=== PATIENT | female | born 1985 | race American Indian/Alaskan Native ===

== ENCOUNTER 2016-11-10 15:30 | Emergency (ER) | payer MEDICAID ==
[2016-11-10] MEDS ORDERED: TYLENOL ONE (15:54)
[2016-11-10] MEDS ORDERED: TYLENOL PO ONE (15:56)
[2016-11-10 17:40] LABS: Basophils % (Auto) 0.4 % (0.0-1.8); Eosinophils % (Auto) 0.6 % (0.0-4.3); Hematocrit 32.4 % (30.3-42.9); Hemoglobin 10.3 gm/dl (10.1-14.3); Mean Corpuscular HGB Conc 32 % (30-34); Mean Corpuscular Volume 73 fl (79-97); Platelet Count 250 K/mm3 (140-440); Red Blood Count 4.44 M/mm3 (3.65-5.03); Red Cell Distribution Width 16.2 % (13.2-15.2); White Blood Count 11.3 K/mm3 (4.5-11.0)
[2016-11-10 17:41] LABS: Mean Corpuscular Hemoglobin 23 pg (28-32)
[2016-11-10] MEDS ORDERED: CLEOCIN IM ONE (17:42)
[2016-11-10] MEDS ORDERED: TORADOL IM ONE (17:42)
[2016-11-10] MEDS ORDERED: PERCOCET 5/325 PO ONE (17:42)
[2016-11-10 17:44] LABS: Anion Gap 16 mmol/L; BUN/Creatinine Ratio 17.14; Blood Urea Nitrogen 12 mg/dL (7-17); Carbon Dioxide 24 mmol/L (22-30); Chloride 102.4 mmol/L (98-107); Glucose 110 mg/dL (65-100); Potassium 3.5 mmol/L (3.6-5.0); Sodium 139 mmol/L (137-145)
[2016-11-10 17:53] LABS: INR 1.19 (0.87-1.13); Partial Thromboplastin Time 30.9 Sec. (24.2-36.6)
[2016-11-10] MEDS ORDERED: K-DUR PO ONE (18:15)
[2016-11-10 18:19] VITALS: BP 139/88
--- NOTE | 2016-11-10 18:35 | Emergency Department Report ---
Entered by ELBA OROSCO, acting as scribe for FELIBERTO GOMEZ PA. ED Extremity Problem HPI - General Chief complaint: Extremity Injury, Lower Stated complaint: CELLULITUS Time Seen by Provider: 11/10/16 16:51 Source: patient Mode of arrival: Ambulatory Limitations: No Limitations - History of Present Illness Initial comments: This is a 30 y/o male, nontoxic, well nourished in appearance, no acute signs of distress with a PMHx of gestational diabetes, HTN, and morbid obesity presents to the ED c/o gradually worsening cellulitis to left lower leg that began 3 days ago. Rates associated pain an 8/10 in severity, which he describes as sharp in quality. Aggravated with movement and alleviated with immobilization. Reports associated fever, but she denies insect bite, left lower leg injury/trauma fever, chills, chest pain, SOB, DON or dizziness, numbness, tingling. Notes she had cellulitis in her left inner thigh last June , which she was admitted for 1 week. Denies PMHx of DVT and PE. Denies any recent long travels. Took Motrin with no relief. NKDA. CHAPIN Complaint: extremity pain, extremity swelling Onset/Timin -: days(s) Location: left, lower extremity History of Same: Yes (once in June 2015) -: No myalgia, Yes arthralgia, Yes fever, No associated dyspnea, No associated chest pain Radiation: none Severity scale (0 -10): 8 Quality: sharp Consistency: constant Improves with: immobilization, rest Worsens with: weight bearing, walking, palpation Associated Symptoms: denies other symptoms, fever, arthralgias (LT lower leg pain). denies: chest pain, shortness of breath, myalgias, rash - Related Data Previous Rx's Medication Instructions Recorded Last Taken Type Clindamycin [Clindamycin CAP] 300 mg PO Q8H #30 cap 11/10/16 Unknown Rx HYDROcodone/APAP 5-325 [[place] 1 each PO Q6H PRN #15 tablet 11/10/16 Unknown Rx 5-325 mg TAB] Allergies Allergy/AdvReac Type Severity Reaction Status Date / Time latex Allergy Hives Verified 06/30/15 14:09 ED Review of Systems Comment: All other systems reviewed and negative Constitutional: fever. denies: chills, diaphoresis, weakness Eyes: denies: eye pain, eye discharge, vision change ENT: denies: ear pain, throat pain Respiratory: denies: cough, orthopnea, shortness of breath, SOB with exertion, SOB at rest, stridor, wheezing Cardiovascular: denies: chest pain, palpitations, dyspnea on exertion, orthopnea , edema, syncope, paroxysmal nocturnal dyspnea Endocrine: no symptoms reported Gastrointestinal: denies: abdominal pain, nausea, vomiting, diarrhea, constipation Genitourinary: denies: urgency, dysuria, discharge Musculoskeletal: arthralgia (LT lower leg). denies: back pain, joint swelling, myalgia Skin: other (cellulitis on left left lower leg). denies: rash, lesions Neurological: denies: headache, weakness, numbness, paresthesias Psychiatric: denies: anxiety, depression Hematological/Lymphatic: denies: easy bleeding, easy bruising ED Past Medical Hx - Past Medical History Previous Medical History?: Yes Hx Hypertension: Yes Hx Diabetes: Yes (GESTATIONAL) Additional medical history: MORBID OBESITY - Surgical History Past Surgical History?: Yes Additional Surgical History: X 2 - Family History Family history: no significant - Social History Smoking Status: Current Every Day Smoker Substance Use Type: Alcohol - Medications Home Medications: Home Medications Medication Instructions Recorded Confirmed Last Taken Type Clindamycin [Clindamycin CAP] 300 mg PO Q8H #30 cap 11/10/16 Unknown Rx HYDROcodone/APAP 5-325 [[place] 1 each PO Q6H PRN #15 tablet 11/10/16 Unknown Rx 5-325 mg TAB] ED Physical Exam - General Limitations: No Limitations General appearance: alert, in no apparent distress - Head Head exam: Present: atraumatic, normocephalic, normal inspection - Eye Eye exam: Present: normal appearance, PERRL, EOMI Pupils: Present: normal accommodation - ENT ENT exam: Present: normal exam, normal orophraynx, mucous membranes moist, normal external ear exam - Neck Neck exam: Present: normal inspection (supple), full ROM. Absent: tenderness, meningismus, lymphadenopathy - Respiratory Respiratory exam: Present: normal lung sounds bilaterally. Absent: respiratory distress, wheezes, rales, rhonchi, stridor, chest wall tenderness, accessory muscle use, decreased breath sounds, prolonged expiratory - Cardiovascular Cardiovascular Exam: Present: regular rate, normal rhythm, normal heart sounds. Absent: systolic murmur, diastolic murmur, S3, S4 - GI/Abdominal GI/Abdominal exam: Present: soft, normal bowel sounds. Absent: distended, tenderness, guarding, rebound, rigid, hypoactive bowel sounds, organomegaly, mass, bruit, pulsatile mass - Extremities Exam Extremities exam: Present: full ROM, tenderness (left lower extremity), normal capillary refill, calf tenderness (left). Absent: normal inspection, pedal edema, joint swelling - Expanded Lower Extremity Exam Left Hip exam: Present: normal inspection, full ROM, external rotation, internal rotation, pelvic stability. Absent: tenderness, swelling, abrasion, laceration , ecchymosis, deformity, crepidus, dislocation, erythema, shortening Upper Leg exam: Present: normal inspection, full ROM. Absent: tenderness, swelling, abrasion, laceration, ecchymosis, deformity, crepidus, dislocation, erythema Knee exam: Present: full ROM, tenderness, swelling, full knee extension. Absent : normal inspection, abrasion, laceration, ecchymosis, deformity, crepidus, dislocation, erythema, effusion, pain w/ pronation/supination, posterior draw sign, pain/laxity with valgus, pain/laxity with varus Lower Leg exam: Present: full ROM, tenderness, swelling, erythema (erythematous outer lateral left mid lower leg with a small opening in center). Absent: normal inspection, abrasion, laceration, ecchymosis, deformity, crepidus, dislocation, palpable cord, Loyd's sign Ankle exam: Present: full ROM, tenderness, swelling. Absent: normal inspection , abrasion, laceration, ecchymosis, deformity, crepidus, dislocation, erythema, anterior draw sign Foot/Toe exam: Present: full ROM, tenderness, swelling. Absent: normal inspection, abrasion, laceration, ecchymosis, deformity, crepidus, dislocation, erythema, amputation, puncture wound, foreign body, calcaneal tenderness, tenderness at base of 5th metatarsal, nail avulsion, subungual hematoma Neuro vascular tendon exam: Present: no vascular compromise. Absent: pulse deficit, abnormal cap refill, motor deficit, sensory deficit, tendon deficit, extremity cold to touch, pallor, abnormal 2-point discrimination, decreased fine /light touch, foot drop, peroneal nerve deficit, significant pain with passive ROM of distal joint Gait: Positive: observed and limited by pain - Back Exam Back exam: Present: normal inspection, full ROM. Absent: tenderness, CVA tenderness (R), CVA tenderness (L), muscle spasm, paraspinal tenderness, vertebral tenderness - Neurological Exam Neurological exam: Present: alert, oriented X3, abnormal gait (due to left lower extremity pain), reflexes normal - Psychiatric Psychiatric exam: Present: normal affect, normal mood - Skin Skin exam: Present: warm, dry, rash, erythema. Absent: cyanosis, urticaria, vesicles, petechiae, pallor - Expanded Skin Exam Expanded Type of lesion: Present: other (cellulitic). Absent: foreign body, bite/sting Distribution of rash: LLE (mid other lateral leg with erythema, tenderness to palpate, swelling with small opening to Center without any drainage. No induration or fluctuance) Description of rash: Present: tenderness, erythematous, swelling (significant swelling to left leg and mild swelling to left ankle and foot when compared to right lower extremity.). Absent: bullous, petechial, purpuic, urticarial, crusting, discharge, fluctuant, indurated ED Course Vital Signs 11/10/16 15:47 Temperature 100.2 F H Pulse Rate 89 Respiratory 16 Rate Blood Pressure 147/87 O2 Sat by Pulse 100 Oximetry Vital Signs 11/10/16 11/10/16 15:47 18:18 Temperature 100.2 F H 98.8 F Pulse Rate 89 74 Respiratory 16 16 Rate Blood Pressure 147/87 Blood Pressure 139/88 [Left] O2 Sat by Pulse 100 95 Oximetry - Reevaluation(s) Reevaluation #1: 11/10/16 18:11 Patient given clindamycin 600 mg IM, 5/325 mg 2 tablets by mouth and Toradol 60 mg IM in emergency room. Her tetanus vaccine is up-to-date ED Medical Decision Making - Lab Data Result diagrams: 11/10/16 17:11 11/10/16 17:14 Lab Results 11/10/16 11/10/16 11/10/16 Range/Units 17:11 17:13 17:14 WBC 11.3 H (4.5-11.0) K/mm3 RBC 4.44 (3.65-5.03) M/mm3 Hgb 10.3 (10.1-14.3) gm/dl Hct 32.4 (30.3-42.9) % MCV 73 L (79-97) fl MCH 23 L (28-32) pg MCHC 32 (30-34) % RDW 16.2 H (13.2-15.2) % Plt Count 250 (140-440) K/mm3 Lymph % (Auto) 19.2 (13.4-35.0) % Bartholomew % (Auto) 4.9 (0.0-7.3) % Eos % (Auto) 0.6 (0.0-4.3) % Baso % (Auto) 0.4 (0.0-1.8) % Lymph # 2.2 (1.2-5.4) K/mm3 Bartholomew # 0.6 (0.0-0.8) K/mm3 Eos # 0.1 (0.0-0.4) K/mm3 Baso # 0.0 (0.0-0.1) K/mm3 Seg Neutrophils % 74.9 H (40.0-70.0) % Seg Neutrophils # 8.5 H (1.8-7.7) K/mm3 PT 15.7 H (12.2-14.9) Sec. INR 1.19 H (0.87-1.13) APTT 30.9 (24.2-36.6) Sec. Sodium 139 (137-145) mmol/L Potassium 3.5 L (3.6-5.0) mmol/L Chloride 102.4 (98-107) mmol/L Carbon Dioxide 24 (22-30) mmol/L Anion Gap 16 mmol/L BUN 12 (7-17) mg/dL Creatinine 0.7 (0.7-1.2) mg/dL Estimated GFR > 60 ml/min BUN/Creatinine Ratio 17.14 % Glucose 110 H (65-100) mg/dL Calcium 8.0 L (8.4-10.2) mg/dL - Radiology Data Radiology results: report reviewed Ultrasound of left lower extremity Doppler study revealed no deep vein thrombosis or superficial vein thrombosis. - Medical Decision Making ED course: Pt here report that she thinks she has cellulitis of her left leg. She says she had this in the past and was treated with antibiotic. Since that she had in a different area but with similar presentation. Tetanus vaccine is up-to-date. Patient had Doppler ultrasound of left lower extremity which revealed no DVT or SVT. Blood work with CBC mild elevation of white count with slight shift to the left suggesting bacterial infection. PT/INR mildly elevated PTT is stable. Patient is taking Motrin. BMP with potassium is 3.5 and will be repleted with a dose of potassium 40 mEq prior to discharge. Calcium was 8.0 which is low. Patient given clindamycin 600 mg IM, Tylenol 650 mg by mouth in triage area for low grade fever, Toradol 60 mg IM and Percocet 5/ 325 mg 2 tablets by mouth for pain. She was repleted with 40 mEq of potassium of 3.5. Patient given information on ultrasound, diagnosis, treatment plan and lab results. He voiced understanding and she had no adverse reaction from medication. He understands that she has to increase her potassium intake to include bananas at least one per day and her calcium intake to include green leafy vegetables, cheese or milk based products. Vital signs are stable and she is afebrile. Diagnostic/Lab: Preliminary Doppler ultrasound revealed no SVT or DVT. CBC stable except white count mildly elevated and mild bacterial shift to the left with segmental neutrophils percentage and number slightly elevated. MCV MCH mild abnormality. RDW 16.2 which is slightly elevated. PTT is normal PT/INR mildly elevated patient takes Motrin 800 mg. Her BMP was stable except that calcium was 8.0 with it which is low and potassium 3.5 which is low. Assessment/plan 1. Cellulitis left leg-patient given clindamycin 600 mg IM and will be discharged home with clindamycin 2. Swelling left lower extremity-instructed to elevate legs when sitting and lying 3. Arthralgia left lower extremity at the leg and foot 4. Hypokalemia-at 3.5 -repleted with potassium 40 mEq and encouraged to eat at least 2 bananas a day. 5. Hypocalcemia at 8.1-educated on food that is Rich and calcium and to increase intake. 6. Fever in adult-patient encouraged to increase her fluid intake and take Tylenol as needed every 8 hours if she has fever. 7. Morbid obesity with BMI of 60.2-low fat, low sodium diet and exercise encouraged Patient discharged home with her family member in stable condition with prescription for clindamycin, [place] and she has Motrin at home and to follow-up with her primary care physician in 2-3 days. ED Disposition Clinical Impression: Cellulitis of left leg, Arthralgia of left lower leg, Swelling of left lower extremity, Hypocalcemia, Hypokalemia, Morbid obesity with BMI of 60.0-69.9, adult, Fever in adult Disposition: DC-01 TO HOME OR SELFCARE Is pt being admited?: No Does the pt Need Aspirin: No Condition: Stable Instructions: Arthralgia (ED), Leg Edema (ED), Cellulitis (ED), Hypokalemia (ED ), Hypocalcemia (ED), Obesity (ED), Fever in Adults (ED), Weight Management (ED) , Weight Loss Tips for Athletes (ED) Additional Instructions: Eat food low in sodium low in fat and try to avoid fried food. Your potassium and calcium was low today. To eat food that is high in potassium and calcium Take antibiotic as prescribed Please do not drive or operate heavy machinery while taking [place] as this medication causes drowsiness Increase your water intake Try to exercise 3-4 times a day for at least 30 minutes each time to decrease your weight Follow up with a primary care physician in 4 days and if he cannot follow up with primary care physician you can return to the emergency room for recheck on cellulitis Try to keep left lower extremity elevated while you are lying or sitting to reduce swelling. schedule an appointment with your primary care physician for Physical exam. Prescriptions: Clindamycin [Clindamycin CAP] 300 mg PO Q8H #30 cap HYDROcodone/APAP 5-325 [[place] 5-325 mg TAB] 1 each PO Q6H PRN #15 tablet PRN Reason: Pain Referrals: PRIMARY CARE, [Primary Care Provider] - 11/14/16 Forms: Work/School Release Form(ED) This documentation as recorded by the KWESI mccracken JASMINE,accurately reflects the service I personally performed and the decisions made by ,FELIBERTO GOMEZ PA.
== END 2016-11-10 18:46 | disposition home or self-care (01) ==
LOC: ED 15:30
DX: L03.116 Cellulitis of left lower limb (principal); M79.605 Pain in left leg; M79.89 Other specified soft tissue disorders; E87.6 Hypokalemia; E83.51 Hypocalcemia; E66.01 Morbid (severe) obesity due to excess calories; Z68.44 Body mass index [BMI] 60.0-69.9, adult; R50.9 Fever, unspecified
CPT/HCPCS: 36415; 80048; 85025; 85610; 85730; 93971; 96372; 99284; J1885

== ENCOUNTER 2017-03-16 13:05 | Emergency (ER) | payer MEDICAID ==
[2017-03-16 13:18] VITALS: BP 117/61
[2017-03-16] MEDS ORDERED: LIDOCAINE VISCOUS 2% PO ONE (13:24)
[2017-03-16] MEDS ORDERED: TESSALON PERLES PO ONE (13:24)
--- NOTE | 2017-03-16 13:35 | Emergency Department Report ---
- General Chief Complaint: Upper Respiratory Infection Stated Complaint: DON/CONGESTION/SORE THROAT Time Seen by Provider: 03/16/17 13:20 Source: patient Mode of arrival: Ambulatory Limitations: No Limitations - History of Present Illness Initial Comments: This is a 31-year-old female nontoxic, well nourished in appearance, no acute signs of distress presents to the ED with c/o of sore throat, rhinnorhea, frontal sinus pain, productive cough, and nasal congestion x1 week. Patient describes productive cough as yellow mucus production. Patient denies any recent travels, long car rides, or recent hospital stays. Patient denies hemoptysis, chest pain, shortness of breathe, fever, chills, headache, stiff neck, nausea, vomiting, numbness or tingling. Patient denies any blurry vision. Denies thunderclap headache. Patient denies any calf pain or tenderness. Denies any drug allergies. PMH includes diabetes. MD Complaint: cough, sore throat, rhinorrhea, nasal congestion, sinus pain -: week(s) (1) Severity: mild Severity scale (0 -10): 8 Quality: aching Consistency: constant Improves With: nothing Worsens With: nothing Associated Symptoms: headache, rhinorrhea, nasal congestion, sore throat, cough. denies: fever, chills, myalgias, diaphoresis, stiff neck, chest pain, shortness of breath, abdominal pain, nausea, vomiting, diarrhea, dysuria, rash, confusion, right sweats, weight loss, epistaxis, hoarseness, ear pain Treatments Prior to Arrival: none - Related Data Previous Rx's Medication Instructions Recorded Last Taken Type Clindamycin [Clindamycin CAP] 300 mg PO Q8H #30 cap 11/10/16 Unknown Rx HYDROcodone/APAP 5-325 [[place] 1 each PO Q6H PRN #15 tablet 11/10/16 Unknown Rx 5-325 mg TAB] Amoxicillin/K Clav Tab [Augmentin 1 tab PO Q12HR #20 tab 03/16/17 Unknown Rx 875 mg] Benzonatate [Tessalon Perle] 100 mg PO Q8H PRN #30 capsule 03/16/17 Unknown Rx Nystas/Diphen/Xyl Visc/Mylanta 15 ml MM Q6H PRN 30 Days udc 03/16/17 Unknown Rx [Magic Mouthwash] Allergies Allergy/AdvReac Type Severity Reaction Status Date / Time latex Allergy Hives Verified 06/30/15 14:09 ED Review of Systems ROS: Stated complaint: DON/CONGESTION/SORE THROAT Other details as noted in HPI Constitutional: denies: chills, fever Eyes: denies: eye pain, eye discharge, vision change ENT: throat pain. denies: ear pain Respiratory: cough. denies: shortness of breath, wheezing Cardiovascular: denies: chest pain, palpitations Endocrine: no symptoms reported Gastrointestinal: denies: abdominal pain, nausea, diarrhea Genitourinary: denies: urgency, dysuria, discharge Musculoskeletal: denies: back pain, joint swelling, arthralgia Skin: denies: rash, lesions Neurological: denies: headache, weakness, paresthesias Psychiatric: denies: anxiety, depression Hematological/Lymphatic: denies: easy bleeding, easy bruising ED Past Medical Hx - Past Medical History Hx Hypertension: Yes Hx Diabetes: Yes (GESTATIONAL) Additional medical history: MORBID OBESITY - Surgical History Additional Surgical History: X 2 - Social History Smoking Status: Current Every Day Smoker Substance Use Type: None - Medications Home Medications: Home Medications Medication Instructions Recorded Confirmed Last Taken Type Clindamycin [Clindamycin CAP] 300 mg PO Q8H #30 cap 11/10/16 Unknown Rx HYDROcodone/APAP 5-325 [[place] 1 each PO Q6H PRN #15 tablet 11/10/16 Unknown Rx 5-325 mg TAB] Amoxicillin/K Clav Tab [Augmentin 1 tab PO Q12HR #20 tab 03/16/17 Unknown Rx 875 mg] Benzonatate [Tessalon Perle] 100 mg PO Q8H PRN #30 capsule 03/16/17 Unknown Rx Nystas/Diphen/Xyl Visc/Mylanta 15 ml MM Q6H PRN 30 Days udc 03/16/17 Unknown Rx [Magic Mouthwash] ED Physical Exam - General Limitations: No Limitations General appearance: alert, in no apparent distress - Head Head exam: Present: atraumatic, normocephalic, normal inspection - Eye Eye exam: Present: normal appearance, PERRL, EOMI. Absent: scleral icterus, conjunctival injection, nystagmus, periorbital swelling, periorbital tenderness - ENT ENT exam: Present: mucous membranes moist, TM's normal bilaterally, normal external ear exam - Expanded ENT Exam Expanded Ear exam: Present: normal external inspection Mouth exam: Present: normal external inspection, tongue normal. Absent: drooling, trismus, muffled voice, tongue elevation, laceration Teeth exam: Present: normal inspection Throat exam: Positive: tonsillar erythema, tonsillomegaly (2+). Negative: tonsillar exudate, R peritonsillar mass, L peritonsillar mass - Neck Neck exam: Present: normal inspection, full ROM. Absent: tenderness, meningismus, lymphadenopathy, thyromegaly - Respiratory Respiratory exam: Present: normal lung sounds bilaterally. Absent: respiratory distress, wheezes, rales, rhonchi, stridor, chest wall tenderness, accessory muscle use, decreased breath sounds, prolonged expiratory - Cardiovascular Cardiovascular Exam: Present: regular rate, normal rhythm, normal heart sounds. Absent: bradycardia, tachycardia, irregular rhythm, systolic murmur, diastolic murmur, rubs, gallop - GI/Abdominal GI/Abdominal exam: Present: soft, normal bowel sounds. Absent: distended, tenderness, guarding, rebound, rigid, diminished bowel sounds - Rectal Rectal exam: Present: deferred - Extremities Exam Extremities exam: Present: normal inspection, full ROM, normal capillary refill. Absent: tenderness, pedal edema, joint swelling, calf tenderness - Back Exam Back exam: Present: normal inspection, full ROM. Absent: tenderness, CVA tenderness (R), CVA tenderness (L), muscle spasm, paraspinal tenderness, vertebral tenderness, rash noted - Neurological Exam Neurological exam: Present: alert, oriented X3, CN II-XII intact, normal gait, reflexes normal - Psychiatric Psychiatric exam: Present: normal affect, normal mood - Skin Skin exam: Present: warm, dry, intact, normal color. Absent: rash - Other Other exam information: Positive frontal sinus tenderness. ED Course Vital Signs 03/16/17 13:15 Temperature 98.3 F Pulse Rate 65 Respiratory 18 Rate Blood Pressure 117/61 O2 Sat by Pulse 100 Oximetry - Reevaluation(s) Reevaluation #1: 03/16/17 13:38 Patient is speaking in full sentences with no signs of distress noted. ED Medical Decision Making - Medical Decision Making This is a 31-year-old female that presents with sinusitis and upper resp infection. Patient is stable and was examined by me. Chest x-ray has been obtained and dictated by the radiologist with Normal exam. Patient notified of x-ray results were noted by the patient. Influenza and strep swab has been obtained with negative. Patient received lidocaine viscous and Tessalon Perles ikn ed. Patient was instructed Follow-up with a primary care doctor in 3-5 days or if symptoms worsen and continue return to emergency room as soon as possible. At time time of discharge, the patient does not seem toxic or ill in appearance. No acute signs of distress noted. Patient agrees to discharge treatment plan of care. No further questions noted by the patient. Critical care attestation.: If time is entered above; I have spent that time in minutes in the direct care of this critically ill patient, excluding procedure time. ED Disposition Clinical Impression: Sinusitis Qualifiers: Sinusitis location: frontal Chronicity: acute Recurrence: non-recurrent Qualified Code(s): J01.10 - Acute frontal sinusitis, unspecified Upper respiratory infection Qualifiers: URI type: unspecified URI Qualified Code(s): J06.9 - Acute upper respiratory infection, unspecified Disposition: DC-01 TO HOME OR SELFCARE Is pt being admited?: No Does the pt Need Aspirin: No Condition: Stable Instructions: Sinusitis (ED), Amoxicillin/Clavulanate Potassium (By mouth), Upper Respiratory Infection (ED), Benzonatate (By mouth) Additional Instructions: Follow-up with a primary care doctor in 3-5 days or if symptoms worsen and continue return to emergency room as soon as possible. Prescriptions: Amoxicillin/K Clav Tab [Augmentin 875 mg] 1 tab PO Q12HR #20 tab Benzonatate [Tessalon Perle] 100 mg PO Q8H PRN #30 capsule PRN Reason: Cough Nystas/Diphen/Xyl Visc/Mylanta [Magic Mouthwash] 15 ml MM Q6H PRN 30 Days udc PRN Reason: Sore Throat Referrals: BRENDEN ACEVES MD [Staff Physician] - 3-5 Days DWIGHT ARIAS MD [Primary Care Provider] - 3-5 Days [facility] [Outside] - 3-5 Days [facility] [Outside] - 3-5 Days Forms: Work/School Release Form(ED)
--- NOTE | 2017-03-16 14:09 | XRay Report ---
ROUTINE CHEST, TWO VIEWS: Cough. PA and lateral views demonstrate the heart and mediastinal contour to be of normal size and shape. The lungs are clear and fully expanded and the soft tissues and bony structures are normal. IMPRESSION: Normal study.
== END 2017-03-16 14:27 | disposition home or self-care (01) ==
LOC: ED 13:05
DX: J01.10 Acute frontal sinusitis, unspecified (principal); J06.9 Acute upper respiratory infection, unspecified; I10 Essential (primary) hypertension; E66.01 Morbid (severe) obesity due to excess calories; F17.200 Nicotine dependence, unspecified, uncomplicated; Z91.040 Latex allergy status
CPT/HCPCS: 71020; 87116; 87400; 87430

== ENCOUNTER 2017-09-07 15:09 | Emergency (ER) | payer OTHER ==
--- NOTE | 2017-09-07 18:43 | Emergency Department Report ---
ED Female HPI - General Chief complaint: Urogenital-Female Stated complaint: exposed to STD Time Seen by Provider: 09/07/17 18:42 Source: patient Mode of arrival: Ambulatory Limitations: No Limitations - History of Present Illness Initial comments: This is a 31-year-old female nontoxic, well nourished in appearance, no acute signs of distress presents to the ED with c/o of vaginal discharge x2 days. Patient stated that her boyfriend is diagnosed with chlamydia. Patient denies any abdominal pain or pelvic pain. Patient stated she is currently on her menstrual cycle. Patient concerned about STD and would like to be treated apparently. Patient denies any vaginal ulcers or lesions. Patient denies any nausea, vomiting, chest pain, shortness of breathe, fever, chills, headache, back pain, numbness, tingling, stiff neck. Patient denies any urinary symptoms. Patient denies any allergies or PMH. MD Complaint: vaginal discharge, possible STD -: days(s) (2) Radiation: non-radiating Severity: mild Consistency: constant Improves with: none Worsens with: none Are you Now?: No Last Menstrual Period: 09/07/17 EDC: 06/14/18 Associated Symptoms: vaginal discharge. denies: vaginal bleeding, abdominal pain, nausea/vomiting, fever/chills, headaches, loss of appetite, dysuria, hematuria, rash, seizure, shortness of breath, syncope, weakness - Related Data Previous Rx's Medication Instructions Recorded Last Taken Type Clindamycin [Clindamycin CAP] 300 mg PO Q8H #30 cap 11/10/16 Unknown Rx HYDROcodone/APAP 5-325 [[place] 1 each PO Q6H PRN #15 tablet 11/10/16 Unknown Rx 5-325 mg TAB] Amoxicillin/K Clav Tab [Augmentin 1 tab PO Q12HR #20 tab 03/16/17 Unknown Rx 875 mg] Benzonatate [Tessalon Perle] 100 mg PO Q8H PRN #30 capsule 03/16/17 Unknown Rx Nystas/Diphen/Xyl Visc/Mylanta 15 ml MM Q6H PRN 30 Days udc 03/16/17 Unknown Rx [Magic Mouthwash] Sulfamethoxazole/Trimethoprim 1 each PO BID #14 tablet 09/07/17 Unknown Rx [Bactrim DS TAB] metroNIDAZOLE [Flagyl] 500 mg PO Q12HR #14 tab 09/07/17 Unknown Rx Allergies Allergy/AdvReac Type Severity Reaction Status Date / Time latex Allergy Hives Verified 06/30/15 14:09 ED Review of Systems ROS: Stated complaint: exposed to STD Other details as noted in HPI Constitutional: denies: chills, fever Eyes: denies: eye pain, eye discharge, vision change ENT: denies: ear pain, throat pain Respiratory: denies: cough, shortness of breath, wheezing Cardiovascular: denies: chest pain, palpitations Endocrine: no symptoms reported Gastrointestinal: denies: abdominal pain, nausea, diarrhea Genitourinary: discharge. denies: urgency, dysuria, frequency, hematuria Musculoskeletal: denies: back pain, joint swelling, arthralgia Skin: denies: rash, lesions Neurological: denies: headache, weakness, paresthesias Psychiatric: denies: anxiety, depression Hematological/Lymphatic: denies: easy bleeding, easy bruising ED Past Medical Hx - Past Medical History Previous Medical History?: Yes Hx Hypertension: Yes Hx Diabetes: Yes (GESTATIONAL) Additional medical history: MORBID OBESITY - Surgical History Past Surgical History?: Yes Additional Surgical History: X 2 - Social History Smoking Status: Current Every Day Smoker - Medications Home Medications: Home Medications Medication Instructions Recorded Confirmed Last Taken Type Clindamycin [Clindamycin CAP] 300 mg PO Q8H #30 cap 11/10/16 Unknown Rx HYDROcodone/APAP 5-325 [[place] 1 each PO Q6H PRN #15 tablet 11/10/16 Unknown Rx 5-325 mg TAB] Amoxicillin/K Clav Tab [Augmentin 1 tab PO Q12HR #20 tab 03/16/17 Unknown Rx 875 mg] Benzonatate [Tessalon Perle] 100 mg PO Q8H PRN #30 capsule 03/16/17 Unknown Rx Nystas/Diphen/Xyl Visc/Mylanta 15 ml MM Q6H PRN 30 Days udc 03/16/17 Unknown Rx [Magic Mouthwash] Sulfamethoxazole/Trimethoprim 1 each PO BID #14 tablet 09/07/17 Unknown Rx [Bactrim DS TAB] metroNIDAZOLE [Flagyl] 500 mg PO Q12HR #14 tab 09/07/17 Unknown Rx ED Physical Exam - General Limitations: No Limitations General appearance: alert, in no apparent distress - Head Head exam: Present: atraumatic, normocephalic - Eye Eye exam: Present: normal appearance Pupils: Present: normal accommodation - ENT ENT exam: Present: normal exam, mucous membranes moist - Neck Neck exam: Present: normal inspection, full ROM. Absent: tenderness, meningismus, lymphadenopathy - Respiratory Respiratory exam: Present: normal lung sounds bilaterally. Absent: respiratory distress, wheezes, rales, rhonchi, stridor, chest wall tenderness, accessory muscle use, decreased breath sounds, prolonged expiratory - Cardiovascular Cardiovascular Exam: Present: regular rate, normal rhythm, normal heart sounds. Absent: irregular rhythm, systolic murmur, diastolic murmur, rubs, gallop - GI/Abdominal GI/Abdominal exam: Present: soft, normal bowel sounds. 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 Absent: erythema, vaginal discharge, cervical discharge, foreign body, tissue, laceration Bi-manual exam: Present: normal bi-manual exam, other (electric sealing machine operator [facility] power crane operator present during exam). Absent: cervical motion tendernes, adnexal tenderness, adnexal mass, uterine enlargement, uterine tenderness - Extremities Exam Extremities exam: Present: normal inspection, full ROM, normal capillary refill - Back Exam Back exam: Present: normal inspection, full ROM. Absent: tenderness, CVA tenderness (R), CVA tenderness (L), paraspinal tenderness, vertebral tenderness , rash noted - Neurological Exam Neurological exam: Present: alert, oriented X3 - Psychiatric Psychiatric exam: Present: normal affect, normal mood - Skin Skin exam: Present: warm, dry, intact, normal color. Absent: rash ED Course Vital Signs 09/07/17 15:37 Temperature 98.8 F Pulse Rate 91 H Respiratory 16 Rate Blood Pressure 173/90 O2 Sat by Pulse 100 Oximetry - Reevaluation(s) Reevaluation #1: 09/07/17 19:52 Patient is speaking in full sentences with no signs of distress noted. ED Medical Decision Making - Medical Decision Making This is a 31-year-old female that presents with possible STD and BV and Trich. Patient is stable was examined by me. There is no abdominal tenderness. No pelvic pain. UA obtained. Wet prep obtained. Gonorrhea chlamydia swab pending. Patient was instructed to return in 2 days for GC results. Patient wanted empirical treatment so patient received 1 g Rocephin and 1 g of azithromycin by mouth. Patient is discharged with Flagyl and was instructed not to consume any alcohol while taking this. Patient was instructed to Follow- up with a primary care doctor in 3-5 days or if symptoms worsen and continue return to emergency room as soon as possible. At time of discharge, the patient does not seem toxic or ill in appearance. No acute signs of distress noted. Patient agrees to discharge treatment plan of care. No further questions noted by the patient. Critical care attestation.: If time is entered above; I have spent that time in minutes in the direct care of this critically ill patient, excluding procedure time. ED Disposition Clinical Impression: Possible exposure to STD, Bacterial vaginosis, Trichomonas vaginitis UTI (urinary tract infection) Qualifiers: Urinary tract infection type: site unspecified Hematuria presence: with hematuria Qualified Code(s): N39.0 - Urinary tract infection, site not specified ; R31.9 - Hematuria, unspecified Disposition: DC- TO HOME OR SELFCARE Is pt being admited?: No Does the pt Need Aspirin: No Condition: Stable Instructions: Safe Sex (ED), Bacterial Vaginosis (ED), Trichomoniasis (ED), Urinary Tract Infection in Women (ED) Additional Instructions: Follow-up with a primary care doctor in 3-5 days or if symptoms worsen and continue return to emergency room as soon as possible. Prescriptions: metroNIDAZOLE [Flagyl] 500 mg PO Q12HR #14 tab Sulfamethoxazole/Trimethoprim [Bactrim DS TAB] 1 each PO BID #14 tablet Referrals: PRIMARY MD NAHUN [Primary Care Provider] - 3-5 Days BRENDEN ACEVES MD [Staff Physician] - 3-5 Days [facility] [Outside] - 3-5 Days [facility] [Outside] - 3-5 Days Forms: Work/School Release Form(ED), STI Treatment and Prevention
[2017-09-07 18:50] LABS: Bacteria,Urine 1+ /HPF (Negative); Bilirubin,Urine NEG (Negative); Blood,Urine LG (Negative); Color,Urine Yellow (Yellow); Urobilinogen,Urine < 2.0 mg/dL (<2.0)
[2017-09-07 18:53] LABS: RBC,Urine > 182.0 /HPF (0.0-6.0)
[2017-09-07 18:54] LABS: HCG Qualitative,Urine Negative (Negative)
[2017-09-07] MEDS ORDERED: ROCEPHIN IM ONE (19:25)
[2017-09-07] MEDS ORDERED: XYLOCAINE 1% MPF 5 mL INFILTRATI ONE (19:25)
[2017-09-07] MEDS ORDERED: ZITHROMAX PO ONE (19:48)
[2017-09-07 21:48] VITALS: BP 130/80
== END 2017-09-07 21:51 | disposition home or self-care (01) ==
LOC: ED 15:09
DX: N39.0 Urinary tract infection, site not specified (principal); N76.0 Acute vaginitis; Z91.040 Latex allergy status; I10 Essential (primary) hypertension; E11.9 Type 2 diabetes mellitus without complications; F17.200 Nicotine dependence, unspecified, uncomplicated
CPT/HCPCS: 81001; 81025; 87210; 87591; 96372; 99283; J0696